=== PATIENT | male | born 1950 | race Caucasian/White ===

== ENCOUNTER 2019-03-30 10:41 | Day surgery (SDC) | payer OTHER ==
[~2019-03-30] VITALS: Ht 193 cm; Wt 90.2 kg
[~2019-03-30 10:41] MED LIST: LEVOTHYROXINE
[2019-03-30 12:10] VITALS: Ht 193 cm; Wt 90.2 kg
[2019-03-30 12:53] VITALS: BP 106/71; PULSE 57; RESP 18
[2019-03-30] MEDS ORDERED: LIDOCAINE 2% (SDV) 5 ML INJ ONE (13:13)
[2019-03-30] MEDS ORDERED: PROPOFOL 40 ML ONE (13:13)
[2019-03-30 13:56] VITALS: BP 89/58; PULSE 50; RESP 17
[2019-03-30 14:08] VITALS: BP 94/59; PULSE 54; RESP 16
== END 2019-03-30 15:36 | disposition home or self-care (01) ==
LOC: GIL 10:41 → EDSEX 13:00 → GIL 15:36
PROVIDERS: ATTEND Internal Medicine Gastroenterology
DX: Z12.11 Encounter for screening for malignant neoplasm of colon (principal); D12.3 Benign neoplasm of transverse colon; E03.9 Hypothyroidism, unspecified
CPT/HCPCS: 88305